=== PATIENT | female | born 1995 | race Caucasian/White ===

== ENCOUNTER 2019-01-05 03:44 | Emergency (ER) | payer OTHER ==
[2019-01-05] MEDS ORDERED: LIDOCAINE 1% INJ-PF (10 MG/ML) 30 ML SDV INJ ONE (05:45)
[2019-01-05] MEDS ORDERED: DIPH/PERTUSS(ACELL)/TETANUS VAC/PF 0.5 ML SYR (>=10YO) IM ONE (05:45)
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
[2019-01-05 08:21] VITALS: BP 129/78
== END 2019-01-05 08:19 | disposition home or self-care (01) ==
LOC: ER 03:44
DX: S61.412A Laceration without foreign body of left hand, initial encounter (principal); W25.XXXA Contact with sharp glass, initial encounter; Z23 Encounter for immunization
CPT/HCPCS: 73130; 90715; 12002; J3490; 90471; 99283